=== PATIENT | male | born 1965 | race Caucasian/White ===

== ENCOUNTER 2020-04-30 01:23 | Outpatient (CLI) | payer MEDICARE, OTHER, SELFPAY ==
--- NOTE | 2020-04-30 | DI.CT_ITS ---
EXAM: CT NECK W CLINICAL HISTORY: CERVICALGIA, M54.2,? TUMOR, INFECTION OR FX. TECHNIQUE: Imaging Protocol: Axial computed tomography images with coronal and sagittal reformatted images were created and reviewed CONTRAST MATERIAL: Intravenous: Omnipaque 350 Contrast volume:100 ml Contrast route:IV - COMPARISON: No exams were available for comparison FINDINGS: Parotids/and/thyroid gland: Normal. 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 The right submandibular gland appears prominent. No mass is seen. There is no evidence of inflammation. Lymphadenopathy: There is scattered lymph nodes seen along the level one to level three all measurin g less than 8 mm in short axis diameter which are physiologic in nature. Carotids/Jugular: Minimal plaque at the common carotid bulbs. No significant stenosis. Soft tissues: The floor the mouth is unremarkable. The epiglottis and vocal cords are within normal limits. Images through both lung apices are unremarkable. There is no evidence of abscess. Bones: There are degenerative disc changes greatest at C 3 4. Facet degenerative changes are greates t at C7-T1. No lytic or blastic bony lesions are seen. The sinuses and mastoid air cells appear letty ar. IMPRESSION: Absence of the left submandibular gland. No acute abnormality. RADIATION DOSE DELIVERED: Total DLP DATA REPOSITORY: All CT scans at this facility are submitted to the National Radiology Data Registry (NRDR) Dose Index Registry (DIR) with the [employer] (ACR). RADIATION OPTIMIZATION: All CT scans at this facility use at least one of these dose optimization te chniques: automated exposure control; mA and/or kV adjustment per patient size (includes targeted exa ms where dose is matched to clinical indication); or iterative reconstruction.
[2020-04-30 14:14] LABS: CREATININE 1.08 mg/dL (0.70-1.30)
[2020-04-30] MEDS: Omnipaque 350 MG/ML 100 ML BTL IJ (14:56)
[2020-04-30] MEDS: Normal Saline - Diluent 50 ML VIAL IV (14:57)
== END 2020-04-30 01:43 ==
PROVIDERS: Visit Provider Otolaryngology
DX: M54.2 Cervicalgia (principal)
CPT/HCPCS: 70491; 82565; J3490

== ENCOUNTER 2023-05-08 00:39 | Outpatient (CLI) | payer MEDICARE, OTHER, SELFPAY ==
--- NOTE | 2023-05-08 13:43 | DI.RAD_ITS ---
Exam(s) XR CERVICAL SPINE COMP 4-5V EXAM: XR CERVICAL SPINE COMP 4-5V CLINICAL HISTORY: CERVICAL RADICULOPATHY, M54.12. TECHNIQUE: 2D digital imaging was performed. COMPARISON: CT CT NECK W from 04/30/2020 FINDINGS: BONES: No fracture or destructive lesion. Vertebral bodies are unremarkable. DISKS: Moderate narrowing of the C3-4 disc with small endplate osteophytes. Qwvk-yr-tvlvldpt narrowi ng of the C5-6 disc space with small endplate osteophytes. The remaining disc spaces are maintained. There is apparent neural foraminal narrowing at C3-4 and C5-6 on the left and C3-4 on right. The re are mild facet degenerative changes, greatest at C 2 3. ALIGNMENT: Mild straightening of the normal cervical lordosis likely reflecting degenerative changes. Could also be secondary to spasm. The odontoid and atlantoaxial articulations are normal. SOFT TISSUE: Normal. The lung apices are clear. IMPRESSION: Degenerative changes with neural foraminal narrowing at C3-4 and C5-6. DATA REPOSITORY: RADIATION DOSE DELIVERED:
== END 2023-05-08 00:59 ==
PROVIDERS: Visit Provider Family Medicine
DX: M48.02 Spinal stenosis, cervical region
CPT/HCPCS: 72050

== ENCOUNTER → 2023-06-18 13:32 | Outpatient (CLI) | payer MEDICARE, OTHER, SELFPAY ==
--- NOTE | 2023-06-18 11:30 | DI.RAD_ITS ---
Exam(s) XR FOOT RT COMPLETE EXAM: XR FOOT RT COMPLETE CLINICAL HISTORY: right foot pain, injury r/o fx 4, 5th metatarsal M79.671. TECHNIQUE: 2D digital imaging was performed. Three views. COMPARISON: No exams were available for comparison FINDINGS: BONES: No acute fracture is present. No bony destructive lesion is seen. Small enthesophyte at Achil les insertion on calcaneus. JOINTS: No dislocation present. Goob-nt-yrykynrn degenerative changes 1st MTP joint. No significant hallux valgus. SOFT TISSUE: Normal. IMPRESSION: Mild to moderate degenerative changes of the 1st MTP joint. DATA REPOSITORY: RADIATION DOSE DELIVERED:
== END ==
PROVIDERS: Visit Provider Physician Assistant
DX: M18.11 Unilateral primary osteoarthritis of first carpometacarpal joint, right hand
CPT/HCPCS: 73630

== ENCOUNTER → 2023-07-01 00:39 | Outpatient (CLI) | payer MEDICARE, OTHER, SELFPAY ==
--- NOTE | 2023-07-01 08:30 | DI.CT_ITS ---
Exam(s) CT ABDOMEN PELVIS W EXAM: CT ABDOMEN PELVIS W CLINICAL HISTORY: LUQ paiN,R10.12 TECHNIQUE: Imaging Protocol: Axial computed tomography images with coronal and sagittal reformatted images were created and reviewed CONTRAST MATERIAL: Intravenous: Omnipaque 350 Contrast volume:100 mL Oral: Yes COMPARISON: No exams were available for comparison FINDINGS: ABDOMEN: Lung Bases: Normal where visualized. Liver: There is fatty infiltration of the liver. No measurable mass. Portal, Superior Mesenteric, and Splenic Veins: Unremarkable. Gallbladder and Biliary Tract: No radiodense calculus or dilation. Pancreas: Normal density, no abnormal calcifications or inflammatory process. Spleen: Normal. 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 Left adrenal gland is unremarkable. Kidneys: Normal size, contour and axis. No radiodense stones or obstructive uropathy. There is a simp le cyst in the lower pole of the right kidney. No follow-up is recommended. Abdominal Aorta: Abdominal portion non-dilated. Atherosclerosis. Bowel: No obstruction or bowel wall thickening. No evidence of appendicitis. Peritoneal Cavity: No ascites, collection or mesenteric inflammatory response. No free air. Lymph Nodes: Within normal limits. Bones: Within normal limits for the patient's age. Postsurgical changes are seen at the lumbosacral spine. Soft Tissues: There is a large fat containing left inguinal hernia. PELVIS: Bladder: The urinary bladder is incompletely distended. There is thickening of the wall of the bladd er which is likely due to underdistention. Reproductive Organs: Enlarged prostate gland. Lymph Nodes: Within normal limits. Bones: Within normal limits for the patient's age. IMPRESSION: 1. No acute abdominal or pelvic process. 2. Hepatomegaly and hepatic steatosis. 3. Thickening of the wall of the urinary bladder. This is likely due to underdistention. Cystitis c annot be excluded. Please correlate clinically. 4. Enlarged prostate gland. RADIATION DOSE DELIVERED: 954.82mGy.cm Total DLP DATA REPOSITORY: All CT scans at this facility are submitted to the National Radiology Data Registry (NRDR) Dose Index Registry (DIR) with the [employer] (ACR). RADIATION OPTIMIZATION: All CT scans at this facility use at least one of these dose optimization te chniques: automated exposure control; mA and/or kV adjustment per patient size (includes targeted exa ms where dose is matched to clinical indication); or iterative reconstruction.
[2023-07-01] MEDS: Barium Sulfate 2% W/V-Creamy Vanilla Smoothie 450 ML BTL PO (11:55)
[2023-07-01] MEDS: Omnipaque 350 MG/ML 500 ML BTL-Imaging package IJ (14:02)
[2023-07-01] MEDS: Normal Saline - Diluent 50 ML VIAL IJ (14:02)
== END ==
PROVIDERS: Visit Provider Physician Assistant
DX: R16.0 Hepatomegaly, not elsewhere classified (principal); K76.0 Fatty (change of) liver, not elsewhere classified; N40.0 Benign prostatic hyperplasia without lower urinary tract symptoms
CPT/HCPCS: 74177

== ENCOUNTER → 2023-09-29 01:03 | Outpatient (CLI) | payer MEDICARE, OTHER, SELFPAY ==
--- NOTE | 2023-09-29 14:02 | DI.US_ITS ---
APPROVED REPORT EXAM: Stress Echocardiogram Stress Nurse: Yamileth Mooney RN Ordering Provider: TATY CARDONA, Contact Number: [phone] HR: 74 bpm BP: 170/82 mmHg Rhythm: NSR ICD: Chest pain 07.9 Indications: Chest Pain Medical History Medical History: HTN, Hepatic steatosis with fibrosis, H/O DVT, cluster MONROY's, asthma, environmental a llergies, GERD, low back pain s/p surgery, hernia w/ repair, appendectomy, hx of heavy alcholo use, m arijuana use Medications: Diltiazem, Aspirin,Valsartan Allergies: NKDA Cardiac Risk Factors: +family history, HTN, COPD, Asthma, Obesity Previous Cardiac Procedures: None Pretest Chest Pain Characteristics: Pt states he always has CP 2-3/10, left sided under breast, exace rbated with eating Exercise History: Sedentary Physical Disabilities: Rods in back, essential tremor, left sided numbness that is intermittent due t o herniated disc in his back per patient Stress Test Details Test: Exercise stress testing was performed using a Korey protocol. Rest Stress HR Resting HR Supine: 74 bpm Max Heart Rate (APMHR): 161 bpm Resting HR Standin bpm Target HR (85% APMHR): 137 bpm Max HR Achieved: 120 bpm % of APMHR: 75 Recovery HR: 82 bpm BP Resting BP Supine: 170/82 mmHg Resting BP Standin/88 mmHg Max BP: 192/50 mmHg Recovery BP: 182/80 mmHg ECG Resting ECG: Sinus Rhythm Ectopy: None Stress ECG: Sinus Tachycardia ST Change: Unable to assess due to artifact- test discontinued due to inability to read 12 lead Arrhythmia: None Recovery ECG: Sinus Rhythm Recovery ST Change: Unable to assess due to artifact - test discontinued due to inability to read 12 lead Recovery Arrhythmia: None Clinical Reason for Termination: Inability to read 12 lead, safety concerns on treadmill Stress Symptoms: N/A Exercise duration: 1 min7 sec Highest Stage Reached: Stage 1: 1.7 mph at 10% grade. Exercise capacity: 2.6 METs Angina Score: None Rate Pressure Product: [id number] Stress ECG Conclusion 1. Inconclusive stress test due to patient's inability to exercise adequately. Pharmacologic testing recommended. Stress Test Summary STAGE Time (mins) Speed (mph) Grade (%) HR BP SYMPTOMS METS Supine 74 170/82 Standing 81 182/88 1 3 1.7 10 117 4.6 1 min recovery 98 192/50 3 min recovery 73 188/78 6 min recovery 82 182/80 Stress test was not able to be completed due to patient having limiting physical factors preventing h im from safely ambulating on treadmill. Patient has a significant essential tremor. Tremors made it e xtremely difficult to read his 12 lead due to artifact. Secondly, patient states he had metal rods in his back and herniated discs that cause intermittent numbness in his left leg and was unable to ambu late any longer than 1 minute on the treadmill safely. These two factors combined lead to the team st opping the stress test and patient was not able to continue or reach his target heart rate. Patients ordering physician (Primary care, [facility]) was notified of situat ion and it was recommended that PCP order a different type of stress test if she wants evaluation of coronary artery disease. Echo Findings The Pre-Stress Echocardiogram showed normal left ventricular contractility with an estimated Ejection Fraction of about 60-65%. The Peak-Stress Echocardiogram showed normal left ventricular contractility with an estimated Ejectio n Fraction of about 65-70%. Other Information Study Quality: Technically Limited Conclusion Inconclusive stress test due to patient's inability to exercise adequately. Pharmacologic testing rec ommended.
== END ==
PROVIDERS: Visit Provider Family Medicine
DX: K76.0 Fatty (change of) liver, not elsewhere classified (principal); R16.0 Hepatomegaly, not elsewhere classified
CPT/HCPCS: 93350; 93017

== ENCOUNTER 2023-11-06 13:49 | Outpatient (CLI) | payer MEDICARE, OTHER, SELFPAY ==
--- NOTE | 2023-11-06 14:15 | RT.EKG_ITS ---
APPROVED REPORT Exam: Resting ECG Reason for Exam: baseline Patient Location: O HR:73 bpm ECG Measurements Heart Rate 73 AXIS MS 181 P 41 QRSd 96 QRS 32 QT 388 T 39 QTc 428 Conclusion Sinus rhythm...normal P axis, V-rate 50- 99 I have reviewed and interpreted ECG and agree with software generated interpretation.
== END 2023-11-06 13:50 | disposition home or self-care (01) ==
LOC: DI.CARD 14:16
PROVIDERS: Visit Provider Internal Medicine Interventional Cardiology
DX: R07.9 Chest pain, unspecified (principal)
CPT/HCPCS: 93010

== ENCOUNTER → 2023-11-06 13:49 | Outpatient (BNVA) | payer MEDICARE, OTHER, SELFPAY | PROVIDERS: Visit Provider Internal Medicine Interventional Cardiology | DX: R07.89 Other chest pain (principal); I10 Essential (primary) hypertension; J45.30 Mild persistent asthma, uncomplicated | CPT/HCPCS: 93005; 99213 ==

== ENCOUNTER → 2023-11-18 10:48 | Outpatient (CLI) | payer MEDICARE, OTHER, SELFPAY ==
--- NOTE | 2023-11-18 14:33 | DI.RAD_ITS ---
Exam(s) XR LUMBAR SPINE COMPLETE EXAM: XR LUMBAR SPINE COMPLETE CLINICAL HISTORY: LUMBAR RADICULOPATHY, M54.16. TECHNIQUE: 2D digital imaging was performed. Five views. COMPARISON: CT CT ABDOMEN PELVIS W from 07/01/2023 FINDINGS: BONES: No fracture or destructive lesion. Vertebral body heights are maintained. Posterior fusion thomas rdware at L4-5. The hardware appears intact. Laminectomies also present at these levels.. DISKS: The L1-2 and L2-3 disc spaces are maintained. There is mild narrowing of the L2-3 disc and mo derate narrowing of the L3-4 and L5-S1 disc spaces. Endplate osteophytes greatest at L3-4. ALIGNMENT: Lumbar spinal alignment is within normal limits. SOFT TISSUE: Vascular calcification. IMPRESSION: Postsurgical and degenerative changes. DATA REPOSITORY: RADIATION DOSE DELIVERED:
== END ==
PROVIDERS: PCP Family Medicine; Visit Provider Family Medicine
DX: M54.16 Radiculopathy, lumbar region (principal); Z98.890 Other specified postprocedural states; M51.37 Other intervertebral disc degeneration, lumbosacral region
CPT/HCPCS: 72110

== ENCOUNTER → 2023-12-01 13:33 | Outpatient (BNVA) | payer MEDICARE, OTHER, SELFPAY | PROVIDERS: PCP Family Medicine; Referring Provider Family Medicine; Visit Provider Physician Assistant Surgical | DX: J45.30 Mild persistent asthma, uncomplicated (principal); K21.9 Gastro-esophageal reflux disease without esophagitis | CPT/HCPCS: 36415; 99215 ==

== ENCOUNTER 2023-12-01 18:13 | Outpatient (REF) | payer MEDICARE, OTHER, SELFPAY ==
[2023-12-01 17:38] LABS: Abs Immature Grans 0.01 10^3/uL (0.0-0.06); Absolute Basophil Count 0.04 10^3/uL (0.0-0.2); Absolute Eosinophil Count 0.08 10^3/uL (0.0-0.7); Absolute Lymphocyte Count 2.87 10^3/uL (1.2-3.4); Absolute Neutrophil Count 4.53 10^3/uL (1.2-6.7); Basophils % 0.5; HGB 16.2 g/dL (13.5-17.5); Immature Grans % 0.1; Lymphocytes % 34.5; MCH 33.5 pg (27.0-33.0); MCHC 34.5 % (32.0-36.0); MCV 97 fL (80-95); MPV 9.4 fL (8.0-11.0); Monocytes % 9.6; Neutrophils % 54.3; Platelet Count 238 10^3/uL (130-400); RBC 4.83 10^6/uL (4.36-5.78); RDW 12.6 % (11.8-14.1); RDW-SD 45.2 fL; WBC 8.33 10^3/uL (4.4-10.8)
[2023-12-03 00:16] LABS: IgE 445 IU/mL (<158)
== END 2023-12-01 18:14 | disposition home or self-care (01) ==
LOC: NCHCN 18:13
PROVIDERS: PCP Family Medicine; Visit Provider Physician Assistant Surgical
DX: J45.909 Unspecified asthma, uncomplicated (principal)
CPT/HCPCS: 82785; 85025

== ENCOUNTER → 2023-12-11 00:58 | Outpatient (CLI) | payer MEDICARE, OTHER, SELFPAY ==
--- NOTE | 2023-12-11 16:40 | DI.RAD_ITS ---
Exam(s) XR CHEST 2V PA LATERAL EXAM: XR CHEST 2V PA LATERAL CLINICAL HISTORY: ACUTE chest pain and tightness,R07.9. TECHNIQUE: 2D digital imaging was performed. COMPARISON: No exams were available for comparison FINDINGS: 2 views: Heart size is normal. The mediastinum is not widened. Right lung is clear. There are mild increased markings in the lingular segment of the left lung. No other focal lung findings and no pleural effusions. IMPRESSION: Mild increased markings lingular segment left lung. Follow-up to resolution recommended. DATA REPOSITORY: RADIATION DOSE DELIVERED:
== END ==
PROVIDERS: PCP Family Medicine; Visit Provider Physician Assistant Surgical
DX: R07.9 Chest pain, unspecified (principal)
CPT/HCPCS: 94060; 94726; 94729; 71046

== ENCOUNTER 2023-12-11 02:08 | Outpatient (CLI) | payer MEDICARE, OTHER, SELFPAY ==
[2023-12-11] MEDS: Levalbuterol HFA 15 GM INH 4 PUFF IH (16:22)
[2023-12-11] MEDS: Inhaler, Assist Device 1 EACH MC (16:23)
--- NOTE | 2023-12-14 10:58 | W.PFT ---
Date of service: 12/11/23 Time of Service: 14:51 Pulmonary Function Test Result Indications: Asthma Interpretation Spirometry: There is severe airflow obstruction. Significant bronchodilator response. Methacholine unable to be performed due to FEV1<50%. Lung Volumes: There is air trapping Diffusion Capacity: Normal diffusion Airway Pressure: Increased airways resistance Impression Severe airflow obstruction with a bronchodilator response and normal diffusion. This could be consistent with severe asthma with airway remodelling or chronic bronchitis (COPD). Clinical Correlation therefore is recommended.
== END 2023-12-11 02:09 | disposition home or self-care (01) ==
LOC: RT 02:08
PROVIDERS: PCP Family Medicine; Visit Provider Physician Assistant Surgical
DX: J45.909 Unspecified asthma, uncomplicated (principal)
CPT/HCPCS: 94060; 94726; 94729

== ENCOUNTER → 2024-02-01 15:14 | Outpatient (BNVA) | payer MEDICARE, OTHER, SELFPAY | PROVIDERS: PCP Family Medicine; Referring Provider Family Medicine; Visit Provider Student in an Organized Health Care Education/Training Program | DX: J45.909 Unspecified asthma, uncomplicated (principal); R93.89 Abnormal findings on diagnostic imaging of other specified body structures; K21.9 Gastro-esophageal reflux disease without esophagitis | CPT/HCPCS: 99214 ==

== ENCOUNTER → 2024-02-04 03:16 | Outpatient (CLI) | payer MEDICARE, OTHER, SELFPAY ==
--- NOTE | 2024-02-04 14:19 | DI.CT_ITS ---
Exam(s) CT CHEST WO EXAM: CT CHEST WO CLINICAL HISTORY: assess for possible bronchiectasis, ABNL CXR, R93.89. TECHNIQUE: Imaging protocol: Axial computed tomography images were obtained and coronal and sagittal reformatted images were created and reviewed. CONTRAST MATERIAL: Noncontrast COMPARISON: CR XR CHEST 2V PA LATERAL from 12/11/2023 FINDINGS: Pulmonary parenchyma: No consolidation. No suspicious nodules. Mild linear scarring seen in the ling aime. Emphysema: None. Tracheobronchial tree: No mucous plugging. No bronchiectasis . Interstitial changes: None. Pleura: No effusion or pneumothorax. Heart: The heart is mildly dilated. The coronary arteries show mildcalcifications. Aorta: Thoracic aorta non-dilated. Moderateatherosclerotic changes. Lymph nodes: No enlarged lymph nodes. Bones: Degenerative changes are seen. No evidence of compression fracture. Upper abdomen: Enlarged fatty liver. Soft tissues: Unremarkable. IMPRESSION: Linear scarring in the lingula. No suspicious mass or infiltrate. No evidence of bronchiectasis. RADIATION DOSE DELIVERED: 685.75mGy.cm Total DLP 685.75mGy.cm Total DLP DATA REPOSITORY: All CT scans at this facility are submitted to the National Radiology Data Registry (NRDR) Dose Index Registry (DIR) with the [employer] (ACR). RADIATION OPTIMIZATION: All CT scans at this facility use at least one of these dose optimization te chniques: automated exposure control; mA and/or kV adjustment per patient size (includes targeted exa ms where dose is matched to clinical indication); or iterative reconstruction.
== END ==
PROVIDERS: PCP Family Medicine; Visit Provider Student in an Organized Health Care Education/Training Program
DX: R93.89 Abnormal findings on diagnostic imaging of other specified body structures (principal)
CPT/HCPCS: 71250

== ENCOUNTER → 2024-04-04 14:58 | Outpatient (BNVA) | payer MEDICARE, OTHER, SELFPAY | PROVIDERS: PCP Family Medicine; Referring Provider Family Medicine; Visit Provider Physician Assistant Surgical | DX: J45.909 Unspecified asthma, uncomplicated (principal); K21.9 Gastro-esophageal reflux disease without esophagitis; R93.89 Abnormal findings on diagnostic imaging of other specified body structures | CPT/HCPCS: 99214 ==

== ENCOUNTER → 2024-10-03 14:43 | Outpatient (BNVA) | payer MEDICARE, OTHER, SELFPAY | PROVIDERS: PCP Family Medicine; Referring Provider Family Medicine; Visit Provider Physician Assistant Surgical | DX: J45.909 Unspecified asthma, uncomplicated (principal); K21.9 Gastro-esophageal reflux disease without esophagitis; R93.89 Abnormal findings on diagnostic imaging of other specified body structures | CPT/HCPCS: 99214 ==

== ENCOUNTER → 2025-04-03 13:58 | Outpatient (BNVA) | payer MEDICARE, OTHER, SELFPAY | PROVIDERS: PCP Family Medicine; Referring Provider Family Medicine; Visit Provider Physician Assistant Surgical | DX: J45.909 Unspecified asthma, uncomplicated (principal); K21.9 Gastro-esophageal reflux disease without esophagitis; R93.89 Abnormal findings on diagnostic imaging of other specified body structures | CPT/HCPCS: 99214 ==

== ENCOUNTER 2025-05-03 10:07 | Outpatient (CLI) | payer MEDICARE, OTHER, SELFPAY ==
--- NOTE | 2025-05-03 | DI.RAD_ITS ---
Exam(s) XR SHOULDER RT COMPLETE 2+V EXAM: XR SHOULDER RT COMPLETE 2+V CLINICAL HISTORY: M25.511 Shoulder pain RT. TECHNIQUE: 2D digital imaging was performed. Five views. COMPARISON: No exams were available for comparison FINDINGS: BONES: No acute fracture is present. No bony destructive lesion is seen. JOINTS: No dislocation present. Bqih-bp-fotbaukt spurring at the inferior acromioclavicular joint. Anterior acromial hook. Nxji-pc-nmamwsxo narrowing of the glenohumeral joint space. Spurring at the glenoid and humeral head. SOFT TISSUE: Normal. IMPRESSION: Moderate degenerative changes of the glenohumeral joint. Mild degenerative changes of the AC joint. DATA REPOSITORY: RADIATION DOSE DELIVERED:
== END 2025-05-03 10:27 ==
LOC: DI 10:08
PROVIDERS: PCP Family Medicine; Visit Provider Family Medicine
DX: M19.011 Primary osteoarthritis, right shoulder (principal)
CPT/HCPCS: 73030

== ENCOUNTER 2025-05-03 10:59 | Outpatient (CLI) | payer MEDICARE, OTHER, SELFPAY ==
[2025-05-03 22:36] LABS: PSA, Screening 0.7 ng/mL (<=4.5)
== END 2025-05-03 11:00 | disposition home or self-care (01) ==
LOC: LBO 11:01
PROVIDERS: PCP Family Medicine; Visit Provider Family Medicine
DX: Z12.5 Encounter for screening for malignant neoplasm of prostate (principal)
CPT/HCPCS: 36415; 84153; 73030